=== PATIENT | female | born 1965 | race Caucasian/White ===

== ENCOUNTER 2016-06-20 11:51 | Emergency (ER) | payer SELFPAY ==
[2016-06-20] MEDS ORDERED: LIDOCAINE 4%/TETRACAINE 0.5%/EPI 0.18% 5 ML TOPICAL SOLN TOP ONE (12:51)
--- NOTE | 2016-06-20 13:03 | ER Document Report ---
HPI - HPI Patient complains to provider of: abscess Onset: Other - 4 days Onset/Duration: Persistent Quality of pain: Achy Pain Level: 5 Context: Patient states that she has a history of MRSA in the past and is worried about possible abscess to her face. Patient states she has been attempting to squeeze the lesion on her cheek to the point that she created an additional wound to the side of her face. Patient states she did have some purulent drainage from the area. Patient complains of continued facial pain is worried she needs antibiotics. Eyes any fever. Associated Symptoms: Other - Facial wound with infection. denies: Fever Exacerbated by: Denies Relieved by: Denies Similar symptoms previously: Yes Recently seen / treated by doctor: No - ROS ROS below otherwise negative: Yes Systems Reviewed and Negative: Yes All other systems reviewed and negative - CONSTITUTIONAL Constitutional: DENIES: Fever - NEURO Neurology: DENIES: Weakness - CARDIOVASCULAR Cardiovascular: DENIES: Chest pain - GASTROINTESTINAL Gastrointestinal: DENIES: Nausea, Patient vomiting - REPRODUCTIVE Reproductive: DENIES: : - DERM Skin Color: Normal Notes: Facial wound Past Medical History - General Information source: Patient - Social History Smoking Status: Current Every Day Smoker Chew tobacco use (# tins/day): No Frequency of alcohol use: None Drug Abuse: None 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 Lives with: Family Family History: Arthritis, CAD, CVA, DM, Hyperlipidemia, Hypertension, Malignancy Patient has suicidal ideation: No Patient has homicidal ideation: No - Past Medical History Cardiac Medical History: Reports: Hx Hypertension Pulmonary Medical History: Reports: Hx Asthma Renal/ Medical History: Denies: Hx Peritoneal Dialysis GI Medical History: Reports: Hx Hepatitis Musculoskeltal Medical History: Reports Hx Musculoskeletal Deformity Skin Medical History: Reports Hx Cellulitis, Reports Hx MRSA Infectious Medical History: Reports: Hx Hepatitis Past Surgical History: Reports: Hx Abdominal Surgery, Hx Herniorrhaphy, Hx Orthopedic Surgery, Hx Tubal Ligation, Hx Umbilical Hernia - Immunizations Immunizations up to date: Yes Hx Diphtheria, Pertussis, Tetanus Vaccination: Yes Vertical Provider Document - CONSTITUTIONAL Agree With Documented VS: Yes Exam Limitations: No Limitations General Appearance: WD/WN - INFECTION CONTROL TRAVEL OUTSIDE OF THE [place] IN LAST 30 DAYS: No - NECK Neck: Normal Inspection, Supple. negative: Lymphadenopathy-Left, Lymphadenopathy-Right - RESPIRATORY Respiratory: Breath Sounds Normal, No Respiratory Distress O2 Sat by Pulse Oximetry: 98 - CARDIOVASCULAR Cardiovascular: Regular Rate, Regular Rhythm - MUSCULOSKELETAL/EXTREMETIES Musculoskeletal/Extremeties: MAEW - NEURO Level of Consciousness: Awake, Alert, Appropriate Motor/Sensory: No Motor Deficit - DERM Integumentary: Warm, Dry, Abscess - Right cheek area tender with palpation, with tender, mobile cystic type lesion, overlying skin mildly fluctuant Course - Re-evaluation Re-evalutation: 06/20/16 13:46 Offered formal incision and drainage procedure versus attempting oral antibiotics as an outpatient, pt would like to try oral antibiotic treatment at this time with the plan to return immediately for any new or worsening symptoms. Discussed worsening s/s to return immediately for, pt verbalized understanding of instructions. - Vital Signs Vital signs: Temp Pulse Resp BP Pulse Ox 98.4 F 81 18 169/112 H 98 06/20/16 12:00 06/20/16 12:00 06/20/16 12:00 06/20/16 12:00 06/20/16 12:00 Procedures - Incision and Drainage Right Face Type: Simple Anesthetic type: Other - let I&D procedure: Betadine prep applied Incision Method: Incision made with needle Amount/type of drainage: no purulent drainage able to be aspirated Discharge - Discharge Clinical Impression: Abscess of face, Elevated blood pressure reading Condition: Stable Disposition: HOME, SELF-CARE Instructions: Trimethoprim-Sulfa ([facility]), Abscess ([facility]), Cephalexin ([facility]), Post Incision and Drainage, Oral Narcotic Medication ([facility]) Additional Instructions: Return as needed for any new or worsening symptoms Do not pick at or squeeze lesion Follow up with a primary care provider in 2 days to have your blood pressure rechecked. Prescriptions: Cephalexin Monohydrate [Keflex 500 mg Capsule] 500 mg PO Q6H 7 Days Mupirocin [Bactroban 2% Ointment 22 gm] 1 applic TP TID #22 gm Oxycodone HCl/Acetaminophen [Percocet 5-325 mg Tablet] 1 tab PO ASDIR PRN #15 tablet PRN Reason: Sulfamethoxazole/Trimethoprim [Bactrim Ds Tablet] 1 each PO BID #20 tablet Forms: Elevated Blood Pressure Referrals: [facility] [Provider Group] - Follow up as needed [facility] [Provider Group] - Follow up tomorrow
[2016-06-20] MEDS ORDERED: SULFAMETHOXAZOLE/TRIMETHOPRIM 800-160 MG TABLET PO ONE (13:44)
[2016-06-20] MEDS ORDERED: CEPHALEXIN 500 MG CAPSULE PO ONE (13:44)
[2016-06-20 14:23] VITALS: BP 150/96
== END 2016-06-20 14:25 | disposition home or self-care (01) ==
LOC: ER 11:51
PROC: 0H91XZZ Drainage of Face Skin, External Approach (ICD-10-PCS; principal; 2016-06-20)
DX: L02.01 Cutaneous abscess of face (principal); Z86.14 Personal history of Methicillin resistant Staphylococcus aureus infection; I10 Essential (primary) hypertension; J45.909 Unspecified asthma, uncomplicated; F17.200 Nicotine dependence, unspecified, uncomplicated
CPT/HCPCS: 10060; 99283; J3490

== ENCOUNTER 2016-08-12 08:50 | Emergency (ER) | payer SELFPAY ==
[2016-08-12] MEDS ORDERED: DIPHENHYDRAMINE HCL 50 MG CAPSULE PO ONE (09:55)
[2016-08-12] MEDS ORDERED: PREDNISONE 20 MG TABLET PO ONE (09:55)
[2016-08-12] MEDS ORDERED: FAMOTIDINE 20 MG TABLET PO ONE (09:55)
--- NOTE | 2016-08-12 09:56 | ER Document Report ---
ED Skin Rash/Insect Bite/Abscs - General Chief Complaint: Skin Sore(s) Stated Complaint: POSSIBLE BUG BITES Time Seen by Provider: 08/12/16 09:42 Mode of Arrival: Ambulatory Information source: Patient Notes: 50-year-old female presents to ED for insect bites that she has scratched since Friday. She has never had anything like this before. Painful right great toe swelling and infection around the toenail. TRAVEL OUTSIDE OF THE [place] IN LAST 30 DAYS: No - HPI Patient complains to provider of: Insect bite Onset: Other - Friday Onset/Duration: Gradual, Worse Quality of pain: Achy - Insect bite now painful due to scratching Severity: Moderate Pain Level: 3 Skin Character: Other - Insect bite scratched now red painful, painful swollen around right great toe nail with drainage Quality of rash: Itchy, Painful Identify cause: Yes - Bite insect Exacerbated by: Denies Relieved by: Denies Similar symptoms previously: No Recently seen / treated by doctor: No - Related Data Allergies/Adverse Reactions: acetaminophen [From Vicodin] Allergy (Verified 08/12/16 08:59) codeine [Codeine] Allergy (Verified 08/12/16 08:59) hydrocodone bitartrate [From Vicodin] Allergy (Verified 08/12/16 08:59) meloxicam [Meloxicam] Allergy (Verified 08/12/16 08:59) tramadol HCl [From Ultram] Allergy (Verified 08/12/16 08:59) Past Medical History - General Information source: Patient - Social History Smoking Status: Current Every Day Smoker Cigarette use (# per day): Yes - Pack per day Chew tobacco use (# tins/day): No Smoking Education Provided: Yes - Less than 2 minutes Frequency of alcohol use: None Drug Abuse: None Family History: Arthritis, CAD, CVA, DM, Hyperlipidemia, Hypertension, Malignancy Patient has suicidal ideation: No Patient has homicidal ideation: No - Past Medical History Cardiac Medical History: Reports: Hx Hypercholesterolemia, Hx Hypertension Pulmonary Medical History: Reports: Hx Asthma, Hx Bronchitis EENT Medical History: Reports: None Neurological Medical History: Reports: Hx Migraine Endocrine Medical History: Reports: Hx Hypothyroidism Renal/ Medical History: Reports: Hx Renal Insufficiency Malignancy Medical History: Reports: None GI Medical History: Reports: Hx Hepatitis, Hx Irritable Bowel Musculoskeltal Medical History: Reports Hx Arthritis, Reports Hx Musculoskeletal Deformity, Reports Hx Musculoskeletal Trauma Skin Medical History: Reports Hx Cellulitis, Reports Hx MRSA Psychiatric Medical History: Reports: Hx Anxiety, Hx Bipolar Disorder, Hx Depression Traumatic Medical History: Reports: Hx Fractures - Finger, Hx Traumatic Brain Injury Infectious Medical History: Reports: Hx Hepatitis Past Surgical History: Reports: Hx Orthopedic Surgery, Hx Tubal Ligation, Hx Umbilical Hernia - Immunizations Immunizations up to date: Yes Hx Diphtheria, Pertussis, Tetanus Vaccination: Yes Review of Systems - Review of Systems Constitutional: No symptoms reported EENT: No symptoms reported Cardiovascular: No symptoms reported Respiratory: No symptoms reported Gastrointestinal: No symptoms reported Genitourinary: No symptoms reported Female Genitourinary: No symptoms reported Musculoskeletal: No symptoms reported Skin: Lesions, Other - Insect bite Hematologic/Lymphatic: No symptoms reported Neurological/Psychological: No symptoms reported -: Yes All other systems reviewed and negative Physical Exam - Vital signs Vitals: Temp Pulse Resp BP Pulse Ox 97.8 F 74 22 H 160/84 H 95 08/12/16 08:59 08/12/16 08:59 08/12/16 08:59 08/12/16 08:59 08/12/16 08:59 Interpretation: Normal - General General appearance: Appears well, Alert - HEENT Head: Normocephalic, Atraumatic Eyes: Normal Pupils: PERRL - Respiratory Respiratory status: No respiratory distress Chest status: Nontender Breath sounds: Normal Chest palpation: Normal - Cardiovascular Rhythm: Regular Heart sounds: Normal auscultation Murmur: No - Abdominal Inspection: Normal Distension: No distension Bowel sounds: Normal Tenderness: Nontender Organomegaly: No organomegaly - Back Back: Normal, Nontender - Extremities General upper extremity: Normal inspection, Nontender, Normal color, Normal ROM , Normal temperature General lower extremity: Normal inspection, Normal ROM, Normal temperature. No : Samm's sign Foot: Tender, No evidence of FB, Other - Painful swollen right great toenail with drainage. - Neurological Neuro grossly intact: Yes Cognition: Normal Orientation: AAOx4 [place] Coma Scale Eye Opening: Spontaneous [place] Coma Scale Verbal: Oriented [place] Coma Scale Motor: Obeys Commands [place] Coma Scale Total: 15 Speech: Normal Motor strength normal: LUE, RUE, LLE, RLE Sensory: Normal - Psychological Associated symptoms: Normal affect, Normal mood - Skin Skin Temperature: Warm Skin Moisture: Dry Skin Color: Normal Skin irregularity: other - That bites that have been scratched and now painful none actually look infected. Character of irregularity: Urticarial Irregularity with: Tenderness Course - Re-evaluation Re-evalutation: 08/12/16 10:49 Patient treated with steroids Benadryl and Pepcid. Will discharge home with [facility] dispense pack and prescriptions for Septra and Keflex. 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 - Vital Signs Vital signs: Temp Pulse Resp BP Pulse Ox 97.6 F 64 18 127/66 H 96 08/12/16 11:13 08/12/16 11:13 08/12/16 11:13 08/12/16 11:13 08/12/16 11:13 Discharge - Discharge Clinical Impression: Insect bites multiple sites, Ingrown right greater toenail Condition: Stable Disposition: HOME, SELF-CARE Instructions: Family Physicians / Practices Additional Instructions: Ingrown Nail You have an ingrown nail. An ingrown nail develops when the tissues near the nail are pushed up over the nail. Irritation develops and infection follows. An ingrown nail can result from poorly fitting shoes, improper cutting of the nail, or minor injuries. Once the tissues at the edge of the nail swell, the problem can become chronic. Emergency treatment is usually removal of the portion of the nail that has become ingrown. This is followed by hot soaks three to four times a day. Antibiotics may be necessary if infection is present. After the toe heals, make certain there is no pressure on the area, either from shoes or another toe. Trim the toenails straight across, not curved back into the corners. If ingrown nails recur, an operation to remove excess tissue near the nail, or narrowing of the nail, may be necessary. Call the doctor or return if swelling increases, or red streaks, swelling, or swollen glands are found. Insect Bites You have been bitten by an insect. These bites can cause two types of swelling: an initial swelling due to insect saliva or injected poison, and a late reaction due to your body's allergic reaction. This initial local reaction may be uncomfortable but is not dangerous. Often there's an itchy "hive" at the bite location. This is treated with antihistamines, cold compresses, and resting the affected body part. The later reaction often develops about the second day. The entire area becomes very swollen, red, itchy, and tender. This is an allergic reaction. Your body is attacking the leftover insect saliva or venom. This type of allergy is unpleasant, but not dangerous. We treat this swelling with cortisone -type medicine. Sometimes we use antibiotics if we're worried about infection. Antihistamines help with the itch. If you develop a fever, chills, a red streak, or swollen glands in the area of the bite, infection may be starting. Return at once. STEROID MEDICATION: You have been given a medicine of the cortisone/steroid class. This medication is used to control inflammation or allergy. It is usually only given for a short period of time, until the acute process subsides. There are usually no side effects from short-term use of cortisone-like medications. Some persons feel an increased sense of well-being and are not sleepy at bedtime. Long-term use of cortisone medications is best avoided, unless required for a severe condition. If your condition does not remit, or relapses after the course of corticosteroid medication, you should consult your physician. ACID-SUPPRESSING MEDICATION: You have a prescription for medicine which reduces the stomach's secretion of acid. Examples include Zantac, Tagament, and Pepcid. These drugs are often used to allow healing of ulcers or esophagitis. They may be needed to prevent recurrence of ulcers in some patients, or to prevent damage from acid reflux in the esophagus. Take all medication as prescribed, even after the pain is gone. Regular antacids may be added as needed if you have symptoms while taking this medicine. These medications sometimes are prescribed for allergic reactions because they have anti-histaminic effects and relieve the rash and itching of the reaction. There are usually no side effects from this medication. But, in rare cases and particularly in the elderly, serious problems can occur. Contact your doctor if there is fever, rash, hallucinations, confusion, or unusual bruising. Contact your doctor at once if you develop lightheadedness, black or bloody stool, or bloody vomitus. ANTIHISTAMINES: An antihistamine has been given and/or prescribed to control your symptoms. Antihistamines are used for many reasons, including itching, watering eyes, runny nose, allergic swelling, hives, and insect stings. Antihistamines may cause drowsiness, especially with the first dose. Do not operate machinery or drive while under the effects of the medication. Other common side effects include dry mouth and eyes. In older persons, antihistamines can occasionally cause urinary retention, constipation, and trouble focusing the eyes. Do not combine the medication with alcohol, or with any other medication without talking to your doctor. USE OF DIPHENHYDRAMINE: The use of diphenhydramine (Benadryl) has been recommended to control allergic symptoms. The 25 mg strength is available over- the-counter, as well as the elixir. This antihistamine is used for many symptoms. It's useful for itching, watering eyes and nose, allergic swelling, hives, and insect stings. The medication can be repeated four times daily. Age Elixir (12.5 mg/tsp) 25 mg pill 2-3 yr 1/2 tsp 4-8 yr 1 tsp 9-14 yr 2 tsp one tab adult 1-2 tabs Antihistamines may cause drowsiness, especially with the first dose. Do not operate machinery or drive while under the effects of the medication. Do not combine the medication with alcohol, or with any other medication without talking to your doctor. TRIMETHOPRIM-SULFA: You have been given a prescription for trimethoprim-sulfa (TMS, Septra, Bactrim). This is a combination antibiotic of the sulfa class, often used for urinary tract infections, middle ear infections, bronchitis, shigella intestinal infection, and Pneumocystis pneumonia. TMS is usually well-tolerated. Occasional side effects include nausea and decreased appetite. Septra is not recommended for infants less than two months of age. Do not take this medication if you have experienced severe side effects or allergy to sulfa medicine. You should stop this medicine at once and contact your physician if you develop any rash, joint pain, shortness of breath, bruising, or jaundice ( yellow color in the skin), or if you develop any other new or unusual symptoms. ORAL NARCOTIC MEDICATION: You have been given a prescription for pain control. This medication is a narcotic. It's best taken with food, as nausea can result if taken on an empty stomach. Don't operate machinery or drive within six hours of taking this medication. Do not combine this medicine with alcohol, or with any medication which can cause sedation (such as cold tablets or sleeping pills) unless you get permission from the physician. Narcotics tend to cause constipation. If possible, drink plenty of fluids and eat a diet high in fiber and fruits. Please be aware that prescription narcotics also have the potential for abuse. People become addicted to these medications because of the general sense of wellbeing that they induce. This feeling along with a significant reduction in tension, anxiety, and aggression provides a stimulating seductive quality to these drugs. Once your pain is under control, we encourage you to discard your unused narcotics. FOLLOW-UP CARE: If you have been referred to a physician for follow-up care, call the physician s office for an appointment as you were instructed or within the next two days. If you experience worsening or a significant change in your symptoms, notify the physician immediately or return to the Emergency Department at any time for re-evaluation. Prescriptions: Cephalexin Monohydrate [Keflex 500 mg Capsule] 500 mg PO QID #20 capsule Sulfamethoxazole/Trimethoprim [Septra-Ds 800-160 mg Tablet] 1 tab PO BID #20 tablet Forms: Elevated Blood Pressure, Smoking Cessation Education, Return to Work Referrals: ROSSI ZUNIGA DPM [ACTIVE STAFF] - Follow up as needed
[2016-08-12 11:29] VITALS: BP 127/66
== END 2016-08-12 11:15 | disposition home or self-care (01) ==
LOC: ER 08:50
DX: T14.8 Other injury of unspecified body region (principal); W57.XXXA Bitten or stung by nonvenomous insect and other nonvenomous arthropods, initial encounter; L60.0 Ingrowing nail; I10 Essential (primary) hypertension; J45.909 Unspecified asthma, uncomplicated; F17.210 Nicotine dependence, cigarettes, uncomplicated; Z86.14 Personal history of Methicillin resistant Staphylococcus aureus infection; Z71.6 Tobacco abuse counseling; Z88.5 Allergy status to narcotic agent; Z88.8 Allergy status to other drugs, medicaments and biological substances
CPT/HCPCS: 99283; J7512

== ENCOUNTER 2017-08-14 18:58 | Emergency (ER) | payer SELFPAY ==
[2017-08-14] MEDS ORDERED: PREDNISONE 20 MG TABLET PO ONE (19:48)
[2017-08-14] MEDS ORDERED: DIPHENHYDRAMINE HCL 50 MG CAPSULE PO ONE (19:48)
[2017-08-14] MEDS ORDERED: FAMOTIDINE 20 MG TABLET PO ONE (19:48)
--- NOTE | 2017-08-14 19:50 | ER Document Report ---
ED Medical Screen (RME) - General Chief Complaint: High Blood Pressure Stated Complaint: RASH Time Seen by Provider: 08/14/17 19:37 Notes: RAPID MEDICAL EVALUATION DISCLOSURE I have seen this patient as part of a Rapid Medical Evaluation and, if applicable, placed any initially appropriate orders. The patient will be seen and fully evaluated, including a full history and physical exam, by a provider ( in Main ED or Fast Track) when a room becomes available. 51-year-old female here with complaints of chest tightness and shortness of breath ongoing "all day long". She went to [facility] and checked her blood pressure and it was in the 190s. She went home and rechecked her blood pressure again and found it to be in the 240s systolic. She has not taken her blood pressure medication in a long time so her gave her 20 mg of his own lisinopril. She thought that she may have taken too much lisinopril because shortly thereafter she became lightheaded and "droopy" and having diarrhea as well as itchy rash on her neck. She did not try anything for the symptoms. She does not currently have any chest tightness or shortness of breath but the rash persists. EXAM CTAB RRR Minimal to mild urticarial rash on the neck No uvular edema or oropharyngeal swelling TRAVEL OUTSIDE OF THE [place] IN LAST 30 DAYS: No - Related Data Allergies/Adverse Reactions: codeine [Codeine] Allergy (Verified 08/14/17 19:38) hydrocodone bitartrate [From Vicodin] Allergy (Verified 08/14/17 19:38) meloxicam [Meloxicam] Allergy (Verified 08/14/17 19:38) tramadol HCl [From Ultram] Allergy (Verified 08/14/17 19:38) Past Medical History - Social History Chew tobacco use (# tins/day): No Frequency of alcohol use: None Drug Abuse: None - Past Medical History Cardiac Medical History: Reports: Hx Hypercholesterolemia, Hx Hypertension Pulmonary Medical History: Reports: Hx Asthma, Hx Bronchitis Neurological Medical History: Reports: Hx Migraine Endocrine Medical History: Reports: Hx Hypothyroidism Renal/ Medical History: Reports: Hx Renal Insufficiency. Denies: Hx Peritoneal Dialysis GI Medical History: Reports: Hx Hepatitis, Hx Irritable Bowel Musculoskeltal Medical History: Reports Hx Arthritis, Reports Hx Musculoskeletal Deformity, Reports Hx Musculoskeletal Trauma Skin Medical History: Reports Hx Cellulitis, Reports Hx MRSA Psychiatric Medical History: Reports: Hx Anxiety, Hx Bipolar Disorder, Hx Depression Traumatic Medical History: Reports: Hx Fractures - Finger, Hx Traumatic Brain Injury Infectious Medical History: Reports: Hx Hepatitis Past Surgical History: Reports: Hx Abdominal Surgery - Hernia repair, Hx Herniorrhaphy, Hx Neurologic Surgery - Cervical fusion, Hx Orthopedic Surgery - Carpal tunnel release bilat, Hx Tubal Ligation, Hx Umbilical Hernia - Immunizations Immunizations up to date: Yes Hx Diphtheria, Pertussis, Tetanus Vaccination: Yes Physical Exam - Vital signs Vitals: Temp Pulse Resp BP Pulse Ox 98.0 F 88 20 134/81 H 96 08/14/17 19:07 08/14/17 19:07 08/14/17 19:07 08/14/17 19:07 08/14/17 19:07 Course - Vital Signs Vital signs: Temp Pulse Resp BP Pulse Ox 98.0 F 88 20 134/81 H 96 08/14/17 19:07 08/14/17 19:07 08/14/17 19:07 08/14/17 19:07 08/14/17 19:07
[2017-08-14 20:07] LABS: ABSOLUTE BASOPHILS # (AUTO) 0.1 10^3/uL (0.0-0.2); ABSOLUTE EOSINOPHILS # (AUTO) 0.1 10^3/uL (0.0-0.6); ABSOLUTE LYMPHOCYTES (AUTO) 2.5 10^3/uL (0.5-4.7); ABSOLUTE MONOCYTES (AUTO) 0.5 10^3/uL (0.1-1.4); ABSOLUTE NEUT (AUTO) 3.6 10^3/uL (1.7-8.2); EOSINOPHILS % (AUTO) 1.2 % (0-6); HEMATOCRIT 46.1 % (36.0-47.0); LYMPHOCYTES % (AUTO) 36.5 % (13-45); MEAN CORPUSCULAR HEMOGLOBIN 30.5 pg (27.0-33.4); MEAN CORPUSCULAR HGB CONC 34.6 g/dL (32.0-36.0); MEAN CORPUSCULAR VOLUME 88 fl (80-97); MONOCYTES % (AUTO) 7.3 % (3-13); PLATELET COUNT 243 10^3/uL (150-450); RED BLOOD COUNT 5.24 10^6/uL (3.72-5.28); RED CELL DISTRIBUTION WIDTH 13.3 % (11.5-14.0); TOTAL CELLS COUNTED % (AUTO) 100 %; WHITE BLOOD COUNT 6.7 10^3/uL (4.0-10.5)
[2017-08-14 20:27] LABS: ANION GAP 14 (5-19); BLOOD UREA NITROGEN 18 mg/dL (7-20); CARBON DIOXIDE 31 mmol/L (22-30); CHLORIDE 105 mmol/L (98-107); GLUCOSE 101 mg/dL (75-110); POTASSIUM 4.4 mmol/L (3.6-5.0); SODIUM 150.4 mmol/L (137-145)
--- NOTE | 2017-08-14 20:46 | RADIOLOGY REPORT (SQ) ---
EXAM DESCRIPTION: CHEST 2 VIEWS COMPLETED DATE/TIME: 08/14/2017 8:29 pm REASON FOR STUDY: CP SOB COMPARISON: 12/26/2008 EXAM PARAMETERS: NUMBER OF VIEWS: two views TECHNIQUE: Digital Frontal and Lateral radiographic views of the chest acquired. RADIATION DOSE: NA LIMITATIONS: none FINDINGS: LUNGS AND PLEURA: No acute opacities, masses or pneumothorax. No pleural effusion. MEDIASTINUM AND HILAR STRUCTURES: No masses or contour abnormalities. HEART AND VASCULAR STRUCTURES: Heart normal size. No evidence for failure. BONES: No acute findings. HARDWARE: None in the chest. OTHER: No other significant finding. IMPRESSION: NO ACUTE RADIOGRAPHIC FINDING IN THE CHEST. TECHNICAL DOCUMENTATION: JOB ID: [id number] 2010 [employer] All Rights Reserved Reading location - IP/workstation name: [email or web address]
--- NOTE | 2017-08-14 22:28 | ER Document Report ---
ED Blood Pressure Problem - General Chief Complaint: High Blood Pressure Stated Complaint: RASH Time Seen by Provider: 08/14/17 19:37 Mode of Arrival: Ambulatory Information source: Patient Notes: 51-year-old female patient presents with complaint of high blood pressure at home. Patient reports that she felt some chest tightness with radiation to her left arm over the last 30 days. Patient reports that tonight she took her blood pressure at [facility] and it was 196/109. Patient reports that she does have a history of hypertension however she has not been taking medicines for approximately 1 year. Patient also reports that she had a rash on her neck a few hours ago. As far as a chest tightness is concerned patient denies any nausea, shortness of breath, diaphoresis or any other associated symptoms. Patient's only past medical history includes hypertension, hepatitis C which patient states has resolved, asthma and headaches. Past surgical history includes cervical fusion. Dictation of this chart was performed using voice recognition software; therefore, there may be some unintended grammatical errors. TRAVEL OUTSIDE OF THE [place] IN LAST 30 DAYS: No - Related Data Allergies/Adverse Reactions: codeine [Codeine] Allergy (Verified 08/14/17 19:38) hydrocodone bitartrate [From Vicodin] Allergy (Verified 08/14/17 19:38) meloxicam [Meloxicam] Allergy (Verified 08/14/17 19:38) tramadol HCl [From Ultram] Allergy (Verified 08/14/17 19:38) Past Medical History - General Information source: Patient - Social History Smoking Status: Current Every Day Smoker Chew tobacco use (# tins/day): No Frequency of alcohol use: None Drug Abuse: None Lives with: Family Family History: Arthritis, CAD, CVA, DM, Hyperlipidemia, Hypertension, Malignancy Patient has suicidal ideation: No Patient has homicidal ideation: No - Past Medical History Cardiac Medical History: Reports: Hx Hypercholesterolemia, Hx Hypertension Pulmonary Medical History: Reports: Hx Asthma, Hx Bronchitis Neurological Medical History: Reports: Hx Migraine Endocrine Medical History: Reports: Hx Hypothyroidism Renal/ Medical History: Reports: Hx Renal Insufficiency. Denies: Hx Peritoneal Dialysis GI Medical History: Reports: Hx Hepatitis, Hx Irritable Bowel Musculoskeltal Medical History: Reports Hx Arthritis, Reports Hx Musculoskeletal Deformity, Reports Hx Musculoskeletal Trauma Skin Medical History: Reports Hx Cellulitis, Reports Hx MRSA Psychiatric Medical History: Reports: Hx Anxiety, Hx Bipolar Disorder, Hx Depression Traumatic Medical History: Reports: Hx Fractures - Finger, Hx Traumatic Brain Injury Infectious Medical History: Reports: Hx Hepatitis Past Surgical History: Reports: Hx Abdominal Surgery - Hernia repair, Hx Herniorrhaphy, Hx Neurologic Surgery - Cervical fusion, Hx Orthopedic Surgery - Carpal tunnel release bilat, Hx Tubal Ligation, Hx Umbilical Hernia - Immunizations Immunizations up to date: Yes Hx Diphtheria, Pertussis, Tetanus Vaccination: Yes Review of Systems - Review of Systems Constitutional: No symptoms reported EENT: No symptoms reported Cardiovascular: See HPI Respiratory: No symptoms reported Gastrointestinal: No symptoms reported Genitourinary: No symptoms reported Female Genitourinary: No symptoms reported Musculoskeletal: No symptoms reported Skin: See HPI Hematologic/Lymphatic: No symptoms reported Neurological/Psychological: No symptoms reported Physical Exam - Vital signs Vitals: Temp Pulse Resp BP Pulse Ox 98.0 F 88 20 134/81 H 96 08/14/17 19:07 08/14/17 19:07 08/14/17 19:07 08/14/17 19:07 08/14/17 19:07 - Notes Notes: PHYSICAL EXAMINATION: GENERAL: Well-appearing, well-nourished and in no acute distress. HEAD: Atraumatic, normocephalic. EYES: Pupils equal round and reactive to light, extraocular movements intact, conjunctiva are normal. ENT: Nares patent, oropharynx clear without exudates. Moist mucous membranes. NECK: Normal range of motion, supple without lymphadenopathy LUNGS: Breath sounds clear to auscultation bilaterally and equal. No wheezes rales or rhonchi. HEART: Regular rate and rhythm without murmurs ABDOMEN: Soft, nontender, nondistended abdomen. No guarding, no rebound. No masses appreciated. Female : deferred Musculoskeletal: Normal range of motion, no pitting or edema. No cyanosis. NEUROLOGICAL: Cranial nerves grossly intact. Normal speech, normal gait. Normal sensory, motor exams PSYCH: Normal mood, normal affect. SKIN: Warm, Dry, normal turgor, no rashes or lesions noted. Course - Re-evaluation Re-evalutation: 51-year-old female patient presenting with chest tightness with radiation into her left arm intermittently 30 days. Patient reports that today her blood pressure was elevated so she took a 20 mg tablet of lisinopril that belongs to her . Patient reports that she has been off of her own lisinopril for about a year. Patient reports that when she was on lisinopril she took between 5-10 mg. Patient came to the emergency department today as she states that her blood pressure at [facility] was 196/109 and that after she took her 's 20 mg lisinopril she felt lightheaded and dizzy and noted that her blood pressure was in the 120s systolically. Patient is currently asymptomatic has no chest pressure, no chest tightness. Reports that her rash that she claimed was on her neck has now completely resolved. CBC was normal, chemistry was unremarkable other than mildly elevated sodium of 150. Troponin was negative initially. Chest x-ray was normal. EKG was a sinus rhythm with a rate of 74, no ST segment elevations or depressions, normal axis. Repeat troponin is also negative. Patient remains chest pain-free. Patient's heart score is 2. Will discharge patient home with plans to follow-up with her primary care provider to further evaluate her complaints of high blood pressure. Patient's blood pressure has been normal throughout her emergency department stay. Patient given return precautions to include worsening of chest pains associated with nausea, diaphoresis, shortness of breath or any other symptoms that are concerning to her. - Vital Signs Vital signs: Temp Pulse Resp BP Pulse Ox 98.7 F 20 L 20 143/84 H 98 08/14/17 22:45 08/14/17 22:45 08/14/17 22:45 08/14/17 22:45 08/14/17 22:45 - Laboratory Result Diagrams: 08/14/17 19:55 08/14/17 19:55 Laboratory results interpreted by me: 08/14/17 08/14/17 19:55 19:55 Hgb 16.0 H Sodium 150.4 H Carbon Dioxide 31 H Discharge - Discharge Clinical Impression: Blood pressure check Chest pain Qualifiers: Chest pain type: unspecified Qualified Code(s): R07.9 - Chest pain, unspecified Condition: Stable Disposition: HOME, SELF-CARE Additional Instructions: Chest Pain of Unclear Cause The exact cause of your chest pain isn't clear. Fortunately, there is no evidence of a dangerous medical condition. Further testing may be required to find the source of the pain. Most often, we find that this pain is coming from the chest wall -- the muscles or rib joints in the chest. But chest pain can come from the lung and lung lining, the esophagus, the heart valves or heart lining, and even the stomach or gallbladder. Rest. Eat lightly until the pain is gone. We may prescribe medicine for pain and inflammation. You should call the physician immediately if the pain radiates to the shoulder, jaw or arms; if you start to run a fever or develop a cough; or if you develop shortness of breath, or other new or alarming symptoms. High Blood Pressure Today's reading was normal in the emergency department. This is likely due to the fact that you took your 's lisinopril prior to arrival. It is not advisable to take anyone else's medications, as you saw today you most likely had a sudden drop in your blood pressure due to taking the lisinopril 20 mg which is a dose that is probably too high for your needs. Pre-hypertension/Hypertension: The patient has been informed that they may have pre-hypertension or Hypertension based on a blood pressure reading in the emergency department. I recommend that the patient call the primary care provider listed on their discharge instructions or a physician of their choice this wee to arrange follow up for further evaluation of possible pre- hypertension or Hypertension. Sometimes, stress or illness causes a temporary elevation of your blood pressure. We suggest that you get your blood pressure measured three more times during the next few days to see if this is more than a temporary abnormality. If your blood pressure is greater than 150/90 on each occasion, you must have treatment. Some simple things you can do to help are: If you have blood pressure medicine but aren't using it regularly, start taking it again. Get some aerobic exercise for at least 20 minutes on a daily basis. (See your doctor before beginning a new exercise program.) Eat a low-fat diet. Lose excess weight. Avoid salty foods and avoid adding salt to any of the foods you eat. Avoid diet pills, decongestants, "energizing" herbs, and other medicines that elevate blood pressure. If left untreated, hypertension greatly enhances your risk for developing heart disease and strokes. Please don't ignore this problem. Please return to the emergency department if you develop worsening chest pain, chest pain that is accompanied by shortness of breath, nausea, diaphoresis or radiation of the pain. Please follow-up with your primary care doctor to follow -up on your blood pressure. I have included the names of two primary care physicians in [facility]. Referrals: [facility] [Provider Group] - Follow up as needed [facility] [Provider Group] - Follow up as needed
[2017-08-14 23:00] VITALS: BP 143/84
--- NOTE | 2017-08-15 07:29 | EKG REPORT ---
SEVERITY:- NORMAL ECG - SINUS RHYTHM : Confirmed by: Godwin Vasques MD 15-Aug-2017 07:28:30
== END 2017-08-14 22:50 | disposition home or self-care (01) ==
LOC: ER 18:58
DX: R03.0 Elevated blood-pressure reading, without diagnosis of hypertension (principal); R07.9 Chest pain, unspecified; M79.602 Pain in left arm; R21 Rash and other nonspecific skin eruption; R42 Dizziness and giddiness; F17.200 Nicotine dependence, unspecified, uncomplicated; E78.00 Pure hypercholesterolemia, unspecified; E03.9 Hypothyroidism, unspecified; Z88.6 Allergy status to analgesic agent; Z98.1 Arthrodesis status; Z86.14 Personal history of Methicillin resistant Staphylococcus aureus infection; Z98.51 Tubal ligation status
CPT/HCPCS: 93005; 99284; 36415; 85025; 80048; 84484; 71046; 93010; J7512

== ENCOUNTER 2019-10-02 09:46 | Emergency (ER) | payer SELFPAY ==
--- NOTE | 2019-10-02 11:11 | ER Document Report ---
ED Medical Screen (RME) - General Stated Complaint: FALL,ANKLE PAIN Time Seen by Provider: 10/02/19 11:09 Notes: HPI: 53-year-old female presenting with right ankle and foot injury. 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 Complains of pain to the medial foot and to the entire ankle states she cannot weight-bear secondary to pain. Denies proximal lower leg pain or injury PHYSICAL EXAMINATION: There is soft tissue swelling around the ankle mortise of the right ankle with tenderness on palpation both medially and laterally. There is tenderness on palpation of the medial aspect of the right foot over the first metatarsal. Dorsalis pedis and posterior tibial pulses are present in the right foot and ankle. Sensation is intact in the toes with capillary refill less than 3 seconds. There is no tenderness around the knee or the proximal fibular region of the right lower extremity I have greeted and performed a rapid initial assessment of this patient. A comprehensive ED assessment and evaluation of the patient, analysis of test results and completion of medical decision making process will be conducted by an additional ED providers. TRAVEL OUTSIDE OF THE [place] IN LAST 30 DAYS: No - Related Data Allergies/Adverse Reactions: codeine [Codeine] Allergy (Verified 10/02/19 11:08) hydrocodone bitartrate [From Vicodin] Allergy (Verified 10/02/19 11:08) meloxicam [Meloxicam] Allergy (Verified 10/02/19 11:08) tramadol HCl [From Ultram] Allergy (Verified 10/02/19 11:08) Past Medical History - Past Medical History Cardiac Medical History: Reports: Hx Hypercholesterolemia, Hx Hypertension Pulmonary Medical History: Reports: Hx Asthma, Hx Bronchitis Neurological Medical History: Reports: Hx Migraine Endocrine Medical History: Reports: Hx Hypothyroidism Renal/ Medical History: Reports: Hx Renal Insufficiency. Denies: Hx Peritoneal Dialysis GI Medical History: Reports: Hx Hepatitis, Hx Irritable Bowel Musculoskeltal Medical History: Reports Hx Arthritis, Reports Hx Musculoskeletal Deformity, Reports Hx Musculoskeletal Trauma Skin Medical History: Reports Hx Cellulitis, Reports Hx MRSA Psychiatric Medical History: Reports: Hx Anxiety, Hx Bipolar Disorder, Hx Depression Traumatic Medical History: Reports: Hx Fractures - Finger, Hx Traumatic Brain Injury Infectious Medical History: Reports: Hx Hepatitis Past Surgical History: Reports: Hx Abdominal Surgery - Hernia repair, Hx Herniorrhaphy, Hx Neurologic Surgery - Cervical fusion, Hx Orthopedic Surgery - Carpal tunnel release bilat, Hx Tubal Ligation, Hx Umbilical Hernia - Immunizations Immunizations up to date: Yes Hx Diphtheria, Pertussis, Tetanus Vaccination: Yes Physical Exam - Vital signs Vitals: Temp Pulse Resp BP Pulse Ox 98.5 F 88 18 135/73 H 97 10/02/19 09:56 10/02/19 09:56 10/02/19 09:56 10/02/19 09:56 10/02/19 09:56 Course - Vital Signs Vital signs: Temp Pulse Resp BP Pulse Ox 98.5 F 88 18 135/73 H 97 10/02/19 09:56 10/02/19 09:56 10/02/19 09:56 10/02/19 09:56 10/02/19 09:56
--- NOTE | 2019-10-02 12:18 | RADIOLOGY REPORT (SQ) ---
EXAM DESCRIPTION: FOOT RIGHT COMPLETE IMAGES COMPLETED DATE/TIME: 10/02/2019 11:44 am REASON FOR STUDY: fall COMPARISON: None. NUMBER OF VIEWS: Three views. TECHNIQUE: AP, lateral and oblique without weight bearing radiographic images acquired of the right foot. LIMITATIONS: None. FINDINGS: MINERALIZATION: Normal. BONES: No acute fracture or dislocation. No worrisome bone lesions. No significant osteophytes. Mode rate plantar calcaneal enthesophyte. JOINTS: No erosions. No tiffanie-articular osteopenia. No chondrocalcinosis. Mild degenerative changes at the anterior tibiotalar joint. SOFT TISSUES: No swelling. No calcifications. OTHER: No other significant finding. IMPRESSION: No acute fracture in the right foot. TECHNICAL DOCUMENTATION: JOB ID: [id number] 2010 [employer]- All Rights Reserved Reading location - IP/workstation name: [email or web address]
--- NOTE | 2019-10-02 12:20 | RADIOLOGY REPORT (SQ) ---
EXAM DESCRIPTION: ANKLE RIGHT COMPLETE IMAGES COMPLETED DATE/TIME: 10/02/2019 11:44 am REASON FOR STUDY: fall COMPARISON: None. NUMBER OF VIEWS: Three views. TECHNIQUE: AP, lateral, and oblique without weight bearing radiographic images acquired of the right ankle. LIMITATIONS: None. FINDINGS: MINERALIZATION: Normal. BONES: No acute fracture or dislocation. No worrisome bone lesions. No significant osteophytes. Mode rate plantar calcaneal enthesophyte. JOINTS: No effusions. Chronic degenerative changes at the anterior tibial talar joint. SOFT TISSUES: There is moderate soft tissue swelling over the medial malleolus. OTHER: No other significant finding. IMPRESSION: Moderate medial malleolar soft tissue swelling without underlying fracture. TECHNICAL DOCUMENTATION: JOB ID: [id number] [employer]- All Rights Reserved Reading location - IP/workstation name: [email or web address]
[2019-10-02] MEDS ORDERED: ACETAMINOPHEN 325 MG TABLET PO ONE (14:04)
--- NOTE | 2019-10-02 14:05 | ER Document Report ---
ED Extremity Problem, Lower - General Chief Complaint: Ankle Pain Stated Complaint: FALL,ANKLE PAIN Time Seen by Provider: 10/02/19 11:09 Notes: 53-year-old female with past medical history of hypertension presenting today with right ankle pain after walking down steps and twisting ankle. She is not certain if it was an inversion or eversion injury. She did not fall and hit any other body part. States she was unable to bear weight initially. States she was able to limp into the emergency department. States that her toes feel slightly numb. She has not taken any pain medication. TRAVEL OUTSIDE OF THE [place] IN LAST 30 DAYS: No - Related Data Allergies/Adverse Reactions: codeine [Codeine] Allergy (Verified 10/02/19 11:08) hydrocodone bitartrate [From Vicodin] Allergy (Verified 10/02/19 11:08) meloxicam [Meloxicam] Allergy (Verified 10/02/19 11:08) tramadol HCl [From Ultram] Allergy (Verified 10/02/19 11:08) Past Medical History - Social History Smoking Status: Never Smoker Family History: Arthritis, CAD, CVA, DM, Hyperlipidemia, Hypertension, Malignancy Patient has homicidal ideation: No - Past Medical History Cardiac Medical History: Reports: Hx Hypercholesterolemia, Hx Hypertension Pulmonary Medical History: Reports: Hx Asthma, Hx Bronchitis Neurological Medical History: Reports: Hx Migraine Endocrine Medical History: Reports: Hx Hypothyroidism Renal/ Medical History: Reports: Hx Renal Insufficiency. Denies: Hx Peritoneal Dialysis GI Medical History: Reports: Hx Hepatitis, Hx Irritable Bowel Musculoskeletal Medical History: Reports Hx Arthritis, Reports Hx Musculoskeletal Deformity, Reports Hx Musculoskeletal Trauma Skin Medical History: Reports Hx Cellulitis, Reports Hx MRSA Psychiatric Medical History: Reports: Hx Anxiety, Hx Bipolar Disorder, Hx Depression Traumatic Medical History: Reports: Hx Fractures - Finger, Hx Traumatic Brain Injury Infectious Medical History: Reports: Hx Hepatitis Past Surgical History: Reports: Hx Abdominal Surgery - Hernia repair, Hx Herniorrhaphy, Hx Neurologic Surgery - Cervical fusion, Hx Orthopedic Surgery - Carpal tunnel release bilat, Hx Tubal Ligation, Hx Umbilical Hernia - Immunizations Immunizations up to date: Yes Hx Diphtheria, Pertussis, Tetanus Vaccination: Yes Review of Systems - Review of Systems Constitutional: No symptoms reported EENT: No symptoms reported Cardiovascular: No symptoms reported Respiratory: No symptoms reported Gastrointestinal: No symptoms reported Genitourinary: No symptoms reported Female Genitourinary: No symptoms reported Musculoskeletal: See HPI Skin: No symptoms reported Hematologic/Lymphatic: No symptoms reported Neurological/Psychological: No symptoms reported Physical Exam - Vital signs Vitals: Temp Pulse Resp BP Pulse Ox 98.5 F 88 18 135/73 H 97 10/02/19 09:56 10/02/19 09:56 10/02/19 09:56 10/02/19 09:56 10/02/19 09:56 Interpretation: Normal - Notes Notes: Adult General: GENERAL: Alert, interacts well. No acute distress HEAD: Normocephalic, atraumatic EYES: Extraocular movements intact. ENT: Airway patent. Nares patent. NECK: Full range of motion. Supple. Trachea midline. No lymphadenopathy. GENITOURINARY: Deferred EXTREMITIES: Moves all 4 extremities spontaneously. Right ankle is ttp along lateral anterior mallelous, anterior ankle and medial mallelous. Swelling noted along medial mallelous. normal radial and dorsal pedis pulses bilaterally. No cyanosis. Decreased flexion and extension and rotation. BACK: normal distal neurovascular exam. NEUROLOGICAL: Alert and oriented x3. Normal speech. Strength 5/ 5 in all extremities. PSYCH: Normal affect, normal mood. SKIN: Warm, dry, normal turgor. No rashes or lesions noted. Course - Re-evaluation Re-evalutation: 10/02/19 14:03 Patient with normal neurovascular exam-she has good sensation to light touch on her feet, Good dorsal pedis pulses. Good capillary refill. Foot and ankle x- ray showed no fracture. Shows mild degenerative changes. I discussed with the patient that her ankle is not fractured and that she has an ankle sprain. She does not desire pain medication at this time. Recommend that she take Tylenol and ibuprofen to help alleviate her pain. She has an allergy to Mobic. I did discuss prescribing her Toradol but after further discussion patient does not desire to try any medication in case she does have a allergic reaction to with the medication. I prescribed her crutches. Recommend she follows up with her primary care provider. I will prescribe her a work note. She may return to the emergency department for any worsening symptoms or development of new symptoms. Patient knowledges and verbalizes understanding of instructions and plan. All questions answered - Vital Signs Vital signs: Temp Pulse Resp BP Pulse Ox 97.9 F 89 20 140/97 H 100 10/02/19 14:15 10/02/19 14:15 10/02/19 14:15 10/02/19 14:15 10/02/19 14:15 Discharge - Discharge Clinical Impression: Ankle sprain Qualifiers: Encounter type: sequela Involved ligament of ankle: unspecified ligament Laterality: right Qualified Code(s): S93.401S - Sprain of unspecified ligament of right ankle, sequela Condition: Stable Disposition: HOME, SELF-CARE Instructions: Ice Packs ([facility]), Splint Precautions ([facility]), Sprained Ankle ([facility]) Additional Instructions: Please rest and elevate your leg as able. Please rest, apply ice and elevation to help alleviate your symptoms. Use Tylenol and ibuprofen for pain relief. Please follow-up with your primary care provider as soon as possible. Please return the emergency department for worsening symptoms or development of new symptoms. Forms: Return to Work
[2019-10-02 14:16] VITALS: BP 140/97
== END 2019-10-02 14:22 | disposition home or self-care (01) ==
LOC: ER 09:46
DX: S93.401S Sprain of unspecified ligament of right ankle, sequela (principal); M25.571 Pain in right ankle and joints of right foot; X50.1XXA Overexertion from prolonged static or awkward postures, initial encounter; Z88.8 Allergy status to other drugs, medicaments and biological substances; I10 Essential (primary) hypertension
CPT/HCPCS: 99283